=== PATIENT | female | born 1970 | race Caucasian/White ===

== ENCOUNTER 2017-05-01 16:17 | Observation (INO) | payer OTHER ==
--- NOTE | 2017-05-01 17:32 | EDPHY ---
H & P Time Seen by Provider: 05/01/17 17:14 HPI/ROS: Chief complaint. Post surgery complication HPI. 47-year-old female presents emergency department with right mid abdominal pain. 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 1 week later the incision became infected and was opened and irrigated and treated with antibiotics. She was recovering. 4 days ago she developed right mid abdominal pain. Fever 2 days ago to 100.5 degrees. She had a CT abdomen yesterday at a [facility] which she said showed inflammation. Her pain is right mid abdomen worse with movement. No chest discomfort or trouble breathing ROS Constitutional. Fever Eyes. no problems with vision ENT. no sore throat, no nasal drainage Cardiovascular. no chest pain Respiratory. no shortness of breath, no cough Abdominal. Right mid abdominal pain . no problems urinating MS. no calf pain/swelling, no neck/back pain, no joint pain Skin. no rash Lymph. no swollen glands Neuro. no headache, no dizziness, no difficulty walking or with speech Past Medical/Surgical History: Volvulus with ascending colon resection, partial hysterectomy, sigmoid resection , appendectomy, cholecystectomy Social History: , nonsmoker, no alcohol Smoking Status: Former smoker Physical Exam: General Appearance: Alert well-developed female mild distress vital signs stable Eyes: Pupils equal and round no pallor or injection. ENT, Mouth: Mucous membranes are moist. Respiratory: There are no retractions, lungs are clear to auscultation. Cardiovascular: Regular rate and rhythm. Gastrointestinal: Abdomen is soft and tender in the right mid abdomen. Healing surgical incision with slight erythema surrounding. No masses. Normal bowel sounds Neurological: Awake and alert, sensory and motor exams grossly normal. Skin: Warm and dry, no rashes. Musculoskeletal: Neck is supple nontender. Extremities symmetrical, full range of motion. Psychiatric: Patient is oriented X 3, there is no agitation. Constitutional: Initial Vital Signs Temperature (C) 37.2 C 05/01/17 16:27 Heart Rate 78 05/01/17 16:27 Respiratory Rate 16 05/01/17 16:27 Blood Pressure 127/84 H 05/01/17 16:27 O2 Sat (%) 97 05/01/17 16:27 O2 Delivery Mode Nasal Cannula O2 (L/minute) 2 Allergies/Adverse Reactions: cyclobenzaprine [From Flexeril] Allergy (Verified 05/01/17 16:24) Home Medications: Medication Instructions Recorded Acetaminophen [Tylenol 325mg (*)] 325 mg PO HS 05/01/17 Herbals/Supplements -Info Only 1 ea PO DAILY 05/01/17 Hydrocodone/Acetaminophen [[place] 0.5 tab PO HS 05/01/17 5/325 (*)] Medical Decision Making - Diagnostics Imaging Results: Imaging Impressions Abdomen CT 05/01/17 19:19 Impression: 1. Right lower quadrant inflammatory change, with possible areas of fat necrosis, but no drainable fluid collection. 2. Left upper quadrant small bowel-small bowel intussusception, likely an incidental finding. 3. Additional findings, as above. Old records are obtained from a [place] from her CT abdomen and pelvis yesterday with IV contrast. The impression was a ana laura intestinal fat stranding in the right mid abdomen and right lower quadrant which may represent postsurgical change/fibrosis though peritonitis is possible. Overt CT evidence of anastomotic breakdown is not otherwise identified. 2. Status post cholecystectomy, gastric bypass, hysterectomy. Appendix was not visualized the the patient has had a previous appendectomy by history. Procedures: IV normal saline. Morphine for pain. Zofran for nausea ED Course/Re-evaluation: I consulted discussed case with Dr. Molina's, surgery who will see the patient in the emergency department Dr. Mora sees the patient in the emergency department. In discussion with the patient and examination between surgeon myself and patient we will keep the patient in the hospital tonight. Patient and I discussed the imaging study results from yesterday laboratory evaluation for today, treatment plan including recommendation for admission. She expresses understanding and agreement Differential Diagnosis: Patient has abdominal pain in the same site as her ascending colectomy from 1 month ago after having a volvulus. Concern is for dehiscence or bowel leak, abscess - Data Points Laboratory Results: Laboratory Results 05/01/17 18:20 05/01/17 18:20 05/01/17 05/01/17 18:20 18:20 WBC 7.57 10^3/uL 10^3/uL (3.80-9.50) RBC 3.78 10^6/uL L 10^6/uL (4.18-5.33) Hgb 11.9 g/dL L g/dL (12.6-16.3) Hct 35.2 % L % (38.0-47.0) MCV 93.1 fL fL (81.5-99.8) MCH 31.5 pg pg (27.9-34.1) MCHC 33.8 g/dL g/dL (32.4-36.7) RDW 12.9 % % (11.5-15.2) Plt Count 286 10^3/uL 10^3/uL (150-400) MPV 9.0 fL fL (8.7-11.7) Neut % (Auto) 61.0 % % (39.3-74.2) Lymph % (Auto) 28.8 % % (15.0-45.0) [place] % (Auto) 5.9 % % (4.5-13.0) Eos % (Auto) 3.7 % % (0.6-7.6) Baso % (Auto) 0.3 % % (0.3-1.7) Nucleat RBC Rel Count 0.0 % % (0.0-0.2) Absolute Neuts (auto) 4.62 10^3/uL 10^3/uL (1.70-6.50) Absolute Lymphs (auto) 2.18 10^3/uL 10^3/uL (1.00-3.00) Absolute Monos (auto) 0.45 10^3/uL 10^3/uL (0.30-0.80) Absolute Eos (auto) 0.28 10^3/uL 10^3/uL (0.03-0.40) Absolute Basos (auto) 0.02 10^3/uL 10^3/uL (0.02-0.10) Absolute Nucleated RBC 0.00 10^3/uL 10^3/uL (0-0.01) Immature Gran % 0.3 % % (0.0-1.1) Immature Gran # 0.02 10^3/uL 10^3/uL (0.00-0.10) Sodium 140 mEq/L mEq/L (134-144) Potassium 4.3 mEq/L mEq/L (3.5-5.2) Chloride 103 mEq/L mEq/L (97-110) Carbon Dioxide 26 mEq/l mEq/l (22-31) Anion Gap 11 mEq/L mEq/L (8-16) BUN 11 mg/dL mg/dL (7-23) Creatinine 0.8 mg/dL mg/dL (0.6-1.0) Estimated GFR > 60 Glucose 86 mg/dL mg/dL (70-100) Calcium 9.2 mg/dL mg/dL (8.5-10.4) Lipase 109 IU/L IU/L (23-300) Medications Given: Sodium Chloride (Ns) 1,000 mls @ 150 mls/hr IV CONT PANDA Stop: 10/28/17 19:14 Last Admin: 05/01/17 21:58 Dose: 1,000 mls Morphine Sulfate (Morphine) 3 - 5 mg IVP Q1HR PRN PRN Reason: Pain, Severe Unable to Take PO Stop: 05/11/17 19:13 Last Admin: 05/01/17 21:25 Dose: 4 mg Ondansetron HCl (Zofran) 4 mg IVP Q4HRS PRN PRN Reason: Nausea/Vomiting, Can't Take PO Stop: 10/28/17 19:13 Last Admin: 05/01/17 21:26 Dose: 4 mg Discontinued Medications Sodium Chloride (Ns) 1,000 mls @ 0 mls/hr IV EDNOW ONE; Wide Open PRN Reason: Protocol Stop: 05/01/17 17:46 Last Admin: 05/01/17 18:11 Dose: 1,000 mls Morphine Sulfate (Morphine) 6 mg IVP EDNOW ONE Stop: 05/01/17 17:46 Last Admin: 05/01/17 18:11 Dose: 6 mg Ondansetron HCl (Zofran) 4 mg IVP EDNOW ONE Stop: 05/01/17 17:46 Last Admin: 05/01/17 18:11 Dose: 4 mg Departure - Departure Disposition: [facility] Inpatient Acute Clinical Impression: Abdominal pain Qualifiers: Abdominal location: right lower quadrant Qualified Code(s): R10.31 - Right lower quadrant pain Condition: Good
[2017-05-01] MEDS ORDERED: NS 1,000 ML IV ONE (17:45)
[2017-05-01] MEDS ORDERED: ONDANSETRON 4 MG/2 ML VIAL IVP ONE (17:45)
[2017-05-01 18:30] LABS: PLATELET COUNT 286 10^3/uL (150-400)
--- NOTE | 2017-05-01 19:13 | PDCONSULT ---
Motorized [employer] Sergeant Note: 47 y/o female with two day hx RLQ pain admitted for further work-up and observation. Full note dictated: Pao Mora MD, FACS #[id number]
[2017-05-01] MEDS ORDERED: METOCLOPRAMIDE 10 MG/2 ML VIAL IVP PRN (19:14)
[2017-05-01] MEDS ORDERED: ONDANSETRON 4 MG/2 ML VIAL IVP PRN (19:14)
[2017-05-01] MEDS ORDERED: ACETAMINOPHEN 650 MG SUPP PR PRN (19:14)
[2017-05-01] MEDS ORDERED: PROMETHAZINE HCL 25 MG/ML INJ IVP PRN (19:14)
--- NOTE | 2017-05-01 20:40 | GHP ---
[f rep st] HISTORY AND PHYSICAL DATE OF ADMISSION: 05/01/2017 CHIEF COMPLAINT: Abdominal pain. HISTORY OF PRESENT ILLNESS: Patient is a 47-year-old female, who presents with a 2-day history of right lower quadrant abdominal pain. Patient reports the pain to have started Ramón night. At that point, she was 4 weeks, status post emergency right colectomy for cecal volvulus by Dr. Williams Stanford. Surgery was on 03/30/2017, and she was discharged 4 days after surgery, returned on April 12, with a superficial wound infection that was drained with culture showing no growth. She received a 1-week course of Keflex for this and subsequently recovered uneventfully. The onset of this current pain was associated with low-grade fever. She presented yesterday to the [facility] emergency room, at which time a CT of the abdomen and pelvis was performed, white blood cell count was obtained, and she was discharged home without further therapy. Pain began to worsen today. She contacted her primary care physician, Dr. Elkins, at [facility] and they recommended she present to [facility] for surgical evaluation. Patient denies any nausea, vomiting. She has had some intermitant loose stools, but none in the last 12 hours. PAST MEDICAL HISTORY: Significant for multiple prior surgeries, including a supracervical hysterectomy for uterine prolapse. That surgery was complicated by intraabdominal bleeding, requiring blood transfusions and she had a prolonged recovery. Subsequently, she underwent a sigmoid resection with coloproctostomy and sacral rectopexy for rectal prolapse, with a proximal diverting ileostomy by Dr. Tello in 2010. She underwent uneventful ileostomy reversal 8 weeks post op. She underwent open cholecystectomy by Dr. Armando Linda with repair of a ventral hernia using mesh through an upper midline incision. She had also undergone abdominoplasty prior to that. Most recent surgery in March 2017, was for cecal volvulus and she underwent a primary resection of the ascending colon, with ileocolostomy. MEDICATIONS: Currently include: [place] 5/325, 1-2 q.4 hours p.r.n. pain, started yesterday. She has no long-term medications, other than vitamins and supplements. ALLERGIES: She is allergic to cyclobenzaprine (Flexeril). SOCIAL HISTORY: She is a nonsmoker. Denies significant alcohol use. Patient is , accompanied by her . FAMILY HISTORY: Noncontributory. REVIEW OF SYSTEMS: Patient reports low-grade fevers at home up to 100.5. She has had no urinary tract symptoms. No emesis, hematemesis, melena, hematochezia. She has had some loose stools. She also has a remote history of endometriosis, identified at the time of her sigmoid resection by Dr. Tello. No prior history of DVT, pulmonary embolus, or pneumonia. PHYSICAL EXAMINATION: VITAL SIGNS: Blood pressure 127/84, heart rate 78, respiratory rate 16, temperature 37.2, O2 saturation 97% on room air. GENERAL: Patient is a pleasant woman, who appears in mild distress. HEENT: No scleral icterus. NECK: Supple without adenopathy. LUNGS: Clear to auscultation. HEART: Regular in rate and rhythm, with a 1 to 2 over 6 systolic ejection murmur. ABDOMEN: Significant for multiple prior scars, including a recent right upper quadrant transverse incision with a small healing eschar in the center portion of the wound. There is minimal erythema around the wound. No fluctuance, crepitus, or drainage. Patient has tenderness approximately 10 cm below her incision as a focal point, with mild associated guarding. No rebound or rigidity. Patient has a prior abdominoplasty scar, as well as an upper midline incision. There is no palpable recurrent hernia. There was no back, flank, or CVA tenderness. PELVIC : Not repeated. RECTAL: Not repeated. EXTREMITIES: Without edema or focal tenderness. LABORATORY STUDIES: WBC 7.5, hemoglobin 11.9, hematocrit 35.2, platelets 286, 000. Sodium 140, potassium 4.3, chloride 103, bicarb 26, BUN 11, creatinine 0.8. Glucose 86, calcium 9.2, lipase 109. IMPRESSION: 1. Abdominal pain, unclear etiology, with recent intestinal surgery. No evidence of peritonitis clinically. 2. Status post sigmoid resection for rectal prolapse. 3. Status post hysterectomy, partial, for uterine prolapse. 4. History of endometriosis. RECOMMENDATIONS: I discussed the findings with the patient and her . I recommended she be admitted for observation and further testing. I recommended an oral contrast CT to evaluate the bowel in more detail. Blood cultures have been obtained. I have not yet started the patient on antibiotics and will observe her for signs of infection. Copy requested to: TNOIA ELKINS /[id number]/MODL MTDD
[2017-05-01] MEDS ORDERED: IOPAMIDOL (ISOVUE-300) 100 ML BTL ONE (20:49)
[2017-05-01] MEDS: NS 1,000 ML IV SCH (21:58)
--- NOTE | 2017-05-01 22:04 | SOAPPROG ---
Downtime Inpatient MD Late Entry SOAP Note: Es's CT showed ana laura-anastomotic inflammatory changes without any evidence of perforation or abscess formation. The small bowel proximal to the anastomosis is prominent but not obstructed. Blood cultures have been drawn. I recommended starting IV antibiotics and advancing to a low residue diet. Her exam remains unchanged and she remains afebrile. Pao Mora MD, FACS
[2017-05-01] MEDS: AMPICILLIN/SULBACTAM 3 GM in NS 100 ML IV SCH (23:55)
[2017-05-02] MEDS: AMPICILLIN/SULBACTAM 3 GM in NS 100 ML IV SCH ×4 (04:33→23:54)
[2017-05-02 04:42] LABS: PLATELET COUNT 268 10^3/uL (150-400)
--- NOTE | 2017-05-02 06:58 | SOAPPROG ---
SOAP Progress Note Assessment/Plan: Assessment: abdominal pain-improved likely ana laura-anastamotic infection/but without overt leak mild cellulitis around wound Plan: continue IV Unasyn transition to oral Augmentin tomorrow if continuing to improve and complete 10 day course 05/02/17 06:57 Subjective: feeling better/passed oral contrast and stool pain improved Objective: Vital Signs Temp Pulse Resp BP Pulse Ox 36.4 C 72 16 85/50 L 94 05/02/17 04:10 05/02/17 04:10 05/02/17 04:10 05/02/17 04:10 05/02/17 04:10 Laboratory Results 05/02/17 04:07 - Pending Discharge Pending Discharge Within 24 Hours: Yes Pending Discharge Date: 05/03/17 Pending Discharge Time: 11:00 Physical Exam - Physical Exam General Appearance: no apparent distress Abdomen: soft, other (erythema around incision slightly improved/less tender RLQ /no guarding) Pelvic Exam: deferred Rectal: deferred Skin: warm/dry Neuro/Psych: normal mood/affect, oriented x 3 ICD10 Worksheet Patient Problems: Problems Problem Status Onset Abdominal pain Acute
[2017-05-02] MEDS: HYDROCODONE/APAP 5/325 TAB PO PRN ×4 (08:05→21:54)
[2017-05-02] MEDS ORDERED: ACETAMINOPHEN 325 MG TAB PO PRN (10:20)
[2017-05-02] MEDS: ACETAMINOPHEN 325 MG TAB PO PRN ×2 (10:29→16:13)
[2017-05-02] MEDS: LORazepam 2 MG/ML INJ IVP PRN ×2 (13:31→19:48)
[2017-05-02] MEDS: NS 1,000 ML IV SCH (15:25)
[2017-05-02] MEDS ORDERED: SUMAtriptan 6 MG/0.5 ML VIAL SC ONE (20:05)
[2017-05-02] MEDS ORDERED: MAGNESIUM SULF 2 GM/WATER 50 ML IV ONE (21:12)
--- NOTE | 2017-05-03 00:25 | GCON ---
[f rep st] CONSULTATION INTERNAL MEDICINE CONSULTATION DATE OF CONSULTATION: 05/02/2017 REASON FOR CONSULTATION: Headache. REQUESTING PHYSICIAN: Dr. Castro Mora. HISTORY OF PRESENT ILLNESS: This is a 47-year-old female who has an extensive surgical history. The most recent surgery was in March of year, when she had a cecal volvulus and underwent primary res ection of her ascending colon with ileocolostomy. She was admitted yesterday with a 2-day history of right lower quadrant abdominal pain. CT scan shows some inflammation in the right lower quadrant, p ossible area of fat necrosis. She has been treated with antibiotics and seems to be getting somewhat better. However, this morning, she developed a severe headache. The headache is mostly in the [place] region and is throbbing. It has been constant ever since it started. She does have photosensiti vity. She is a little bit nauseous. Her neck is a little bit stiff. 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 This was confirmed by lumbar puncture at [facility]. It was thought she contracte d the virus while in the hospital. She is worried that this may be the case today. She denies any p revious history of migraines. She does not get headaches. When she does get headaches, however, it is when she is acutely ill. She denies any mental status changes. No focal weakness. No visual parth nges. REVIEW OF SYSTEMS: A 10-point review of systems was obtained and was negative. PAST MEDICAL AND SURGICAL HISTORY: 1. Supracervical hysterectomy for uterine prolapse, that was complicated by intraabdominal bleeding. 2. Sigmoid resection with coloproctostomy and sacral rectopexy for rectal prolapse with a proximal d iverting ileostomy, and then reversal. 3. Open cholecystectomy and repair of ventral hernia. 4. Recent surgery in March for cecal volvulus. MEDICATIONS IN THE HOSPITAL: Reviewed, and do include IV Unasyn. FAMILY HISTORY: Reviewed and not contributory. PHYSICAL EXAM: VITAL SIGNS: Afebrile, blood pressure is 107/72, heart rate 88, oxygen saturation is 97% on room air. GENERAL: The patient is well developed, no apparent distress. HEENT: Nonicteric sclerae. Extraocular movements intact. Moist mucous membranes. NECK: Supple. She can touch her chin to her chest with some very mild pulling tightness, she says, in her neck. LUNGS: Good effort. Clear to auscultation bilaterally. CARDIOVASCULAR: Regular rate and rhythm. No murmurs or gallop s. ABDOMEN: Positive bowel sounds. Soft. Mild tenderness. No rebound or guarding. EXTREMITIES: No clubbing, cyanosis, or edema. SKIN: Without rash. Dry, intact. NEUROLOGIC: Alert and oriente d x3. Cranial nerves 2 through 12 are intact. 5/5 strength in all 4 extremities. PSYCH: Normal af fect. LABS: White count 7, hemoglobin 11. Chemistries normal. ASSESSMENT: This is a 47-year-old female, presenting with acute headache with migrainous features. 1. Probable migraine headaches. Even though she has never had a history of this, she does tend to g et headaches when she is ill. Possibly, intravenous antibiotics may be precipitating this. She does have a previous history of viral meningitis but at this point, her neck is completely subtle, she mad[place] s no mental status changes and no fever or elevated white blood cell count. Would not get a lumbar p uncture at this time. I am going to try a treatment of Imitrex and see if this may help the headache . We will also give a dose of magnesium, sometimes that can break headaches as well. We will contin ue to follow over the next day until she is discharged. 2. Abdominal inflammatory changes, per Surgery. She is on intravenous Unasyn currently. Thank you for this consultation. We will follow along with you. /[id number]/MODL
[2017-05-03] MEDS: HYDROCODONE/APAP 5/325 TAB PO PRN (04:05)
[2017-05-03] MEDS: AMPICILLIN/SULBACTAM 3 GM in NS 100 ML IV SCH (05:57)
[2017-05-03] MEDS ORDERED: SUMAtriptan 25 MG TAB PO PRN (06:22)
--- NOTE | 2017-05-03 06:29 | SOAPPROG ---
SOAP Progress Note Assessment/Plan: Assessment: abdominal pain-improved likely ana laura-anastamotic infection/but without overt leak mild cellulitis around wound Headache-possible migraine (Dr. Stauffer' consult appreciated) Plan:po Imitrex prn DC IV Unasyn PO Augmentin home later today/low residue diet FU Dr. Stanford 2 weeks FU Britany Elkins PA-C 1 week 05/02/17 06:57 05/03/17 06:26 Subjective: feeling better/headache improved with Imitrex Objective: Vital Signs Temp Pulse Resp BP Pulse Ox 36.5 C 80 16 110/76 94 05/03/17 04:04 05/03/17 04:04 05/03/17 04:04 05/03/17 04:04 05/03/17 04:04 Laboratory Results 05/02/17 04:07 05/02/17 05/03/17 05/04/17 05:59 05:59 05:59 Intake Total 2150 Balance 2150 Physical Exam - Physical Exam General Appearance: no apparent distress Abdomen: normal bowel sounds, non-tender, soft, other (superficial cellulitis improved) ICD10 Worksheet Patient Problems: Problems Problem Status Onset Abdominal pain Acute
[2017-05-03 08:59] VITALS: BP 116/68; PULSE 85; RESP 18; TEMP 98.1; O2SAT 95
[2017-05-03] MEDS ORDERED: AMOXICILLIN/CLAVULANATE POT 875/125 MG TAB PO SCH (09:00)
--- NOTE | 2017-05-03 10:11 | ASDISCHSUM ---
Discharge Information Plan Status: Medically Cleared to Leave: Discharge Date:05/03/2017 09:28 AM CM D/C Disposition: ADT D/C Disposition:Home, Routine, Self-Care Projected Discharge Date:05/03/2017 09:28 AM Transportation at D/C: Discharge Delay Reason: Follow-Up Date:05/03/2017 09:28 AM Discharge Slot: Final Diagnosis: Placement Information Patient Contact Information Contact Name:DIANA Relationship: Address:[address] [place] Work Phone: City:[facility] Phone: State/Zip Code:[place] [address] Email: Financial Information Financial Class:[facility] Primary Plan Desc:JADA [facility] HMO OPEN ACC LOCAL Primary Plan Number:[id number] Secondary Plan Desc: Secondary Plan Number: Assessment Information [facility] CM Progress Note CM Note CM Note Notes: Pt will DC today with no DC needs. Date Signed: 05/03/2017 10:11 AM Electronically Signed By:Tiffany Dudley LCSW Intervention Information Intervention Type:*Incorrect Registration Date of Service:05/02/2017 08:54 AM Patient Type:Inpatient Staff Member:IVY Sampson, Dorita Hours: Discipline: Severity: Comment:
== END 2017-05-03 09:28 | disposition home or self-care (01) ==
LOC: INTOOBSV 19:58 → F1N 20:25
PROVIDERS: ADMIT Surgery; ATTEND Surgery
PROC: 3E0337Z Introduction of Electrolytic and Water Balance Substance into Peripheral Vein, Percutaneous Approach (ICD-10-PCS; 2017-05-01)
PROC: 3E03029 Introduction of Other Anti-infective into Peripheral Vein, Open Approach (ICD-10-PCS; principal; 2017-05-02)
DX: R10.31 Right lower quadrant pain (principal); L03.314 Cellulitis of groin; K56.1 Intussusception; R51 Headache; E86.9 Volume depletion, unspecified; Z87.891 Personal history of nicotine dependence; Z98.0 Intestinal bypass and anastomosis status; Z90.49 Acquired absence of other specified parts of digestive tract; Z90.711 Acquired absence of uterus with remaining cervical stump; Z93.2 Ileostomy status
CPT/HCPCS: 74177; 96361; 96374; 96375; 99285; G0378; J0295; J2060; J2405; J3030; Q9967

== ENCOUNTER → 2017-05-10 | Outpatient (CLI) | payer OTHER ==
[~2017-05-10] MED LIST: IOPAMIDOL (ISOVUE-300) 100 ML BTL ONE
== END ==
LOC: FIMAGING 06:46
PROVIDERS: ATTEND Surgery
DX: G89.18 Other acute postprocedural pain (principal); Z98.890 Other specified postprocedural states
CPT/HCPCS: Q9967